=== PATIENT | male | born 1980 | race Asian ===

== ENCOUNTER 2018-12-03 13:53 | Emergency (ER) | payer MEDICARE, MEDICAID ==
[~2018-12-03] VITALS: Ht 180.3 cm; Wt 70.5 kg
[2018-12-03 17:35] LABS: BASOPHILS % (AUTO) 0.7 % (0.0-2.0); EOSINOPHILS % (AUTO) 0.9 % (1.0-6.0); HEMATOCRIT 45.7 % (41-53); HEMOGLOBIN 15.2 g/dL (13.5-17.5); LYMPHOCYTES % (AUTO) 17.9 % (22.0-44.0); MEAN CORPUSCULAR HEMOGLOBIN 30.2 pg (26.0-34.0); MEAN CORPUSCULAR HGB CONC 33.2 G/dL (31.0-37.0); MEAN CORPUSCULAR VOLUME 91 fL (80-100); MONOCYTES # (AUTO) 0.4 K/uL (0.1-1.0); MONOCYTES % (AUTO) 6.8 % (2.0-9.0); NEUTROPHILS # (AUTO) 4.2 K/uL (1.8-7.7); NEUTROPHILS % (AUTO) 73.7 % (40.0-70.0); PLATELET COUNT (AUTO) 269 K/uL (150-450); RED BLOOD CELL COUNT(AUTO) 5.04 MIL/uL (4.50-5.90); RED CELL DISTRIBUTION WIDTH 13.3 % (11.5-14.5)
[2018-12-03 17:43] LABS: ANION GAP 8 mmol/L (8-16); CALCIUM, TOTAL 8.5 mg/dL (8.8-10.5); CARBON DIOXIDE 29 mmol/L (22-29); CHLORIDE 104 mmol/L (98-107); CREATININE 0.95 mg/dL (0.60-1.30); GLOMERULAR FILTR. RATE CALC > 60 mL/min (>60); GLUCOSE,RANDOM 102 mg/dL (70-110); POTASSIUM 3.9 mmol/L (3.5-5.1); SODIUM SERUM 141 mmol/L (136-145); UREA NITROGEN, BLOOD 9 mg/dL (7-18)
[2018-12-03 17:49] LABS: ALANINE AMINOTRANSFERASE 17 U/L (12-78); ALBUMIN 3.9 g/dL (3.4-5.0); ALKALINE PHOSPHATASE 75 U/L (46-116); ASPARTATE AMINOTRANSFERASE 19 U/L (15-37); BILIRUBIN,TOTAL 0.3 mg/dL (0.1-1.0); TOTAL PROTEIN, SERUM 7.3 g/dL (6.4-8.2)
[2018-12-03 18:17] LABS: AMPHET/METH SCREEN,URINE NEGATIVE (NEGATIVE); BARBITURATE SCREEN, URINE NEGATIVE (NEGATIVE); BENZODIAZEPINES SCREEN,URINE NEGATIVE (NEGATIVE); CANNABINOID SCREEN,URINE NEGATIVE (NEGATIVE); COCAINE SCREEN,URINE NEGATIVE (NEGATIVE); METHADONE SCREEN, URINE NEGATIVE (NEGATIVE); OPIATE SCREEN,URINE NEGATIVE (NEGATIVE)
[2018-12-03 18:18] LABS: PHENCYCLIDINE SCREEN,URINE NEGATIVE (NEGATIVE)
[2018-12-03 20:53] VITALS: BP 119/62
== END 2018-12-03 22:00 | disposition home or self-care (01) ==
LOC: EMS 13:55
DX: F20.0 Paranoid schizophrenia (principal); F91.1 Conduct disorder, childhood-onset type
CPT/HCPCS: 36415; 80053; 80307; 85025; 99285; G0480

== ENCOUNTER 2020-04-20 13:40 | Inpatient (IN) | payer OTHER, MEDICAID ==
[~2020-04-20] VITALS: Ht 175.3 cm; Wt 81.0 kg
[2020-04-20 14:43] LABS: BASOPHILS % (AUTO) 0.9 % (0.0-2.0); EOSINOPHILS % (AUTO) 3.8 % (1.0-6.0); HEMATOCRIT 40.7 % (41-53); HEMOGLOBIN 13.7 g/dL (13.5-17.5); LYMPHOCYTES # (AUTO) 0.8 K/uL (1.0-4.8); LYMPHOCYTES % (AUTO) 14.4 % (22.0-44.0); MEAN CORPUSCULAR HEMOGLOBIN 30.2 pg (26.0-34.0); MEAN CORPUSCULAR HGB CONC 33.6 G/dL (31.0-37.0); MEAN CORPUSCULAR VOLUME 90 fL (80-100); MONOCYTES # (AUTO) 0.6 K/uL (0.1-1.0); MONOCYTES % (AUTO) 11.2 % (2.0-9.0); NEUTROPHILS # (AUTO) 3.7 K/uL (1.8-7.7); NEUTROPHILS % (AUTO) 69.7 % (40.0-70.0); PLATELET COUNT (AUTO) 282 K/uL (150-450); RED BLOOD CELL COUNT(AUTO) 4.52 MIL/uL (4.50-5.90); RED CELL DISTRIBUTION WIDTH 13.3 % (11.5-14.5)
[2020-04-20 14:51] LABS: ANION GAP 8 mmol/L (8-16); CALCIUM, TOTAL 8.6 mg/dL (8.8-10.5); CARBON DIOXIDE 29 mmol/L (22-29); CHLORIDE 104 mmol/L (98-107); CREATININE 0.87 mg/dL (0.60-1.30); GLOMERULAR FILTR. RATE CALC > 60 mL/min (>60); GLUCOSE,RANDOM 143 mg/dL (70-110); POTASSIUM 3.4 mmol/L (3.5-5.1); SODIUM SERUM 141 mmol/L (136-145); UREA NITROGEN, BLOOD 6 mg/dL (7-18)
[2020-04-20 14:55] LABS: SALICYLATE 0.3 mg/dL (2.8-20.0)
[2020-04-20 14:57] LABS: ALANINE AMINOTRANSFERASE 31 U/L (12-78); ALBUMIN 3.5 g/dL (3.4-5.0); ALKALINE PHOSPHATASE 85 U/L (46-116); ASPARTATE AMINOTRANSFERASE 21 U/L (15-37); BILIRUBIN,TOTAL 0.3 mg/dL (0.1-1.0); TOTAL PROTEIN, SERUM 6.2 g/dL (6.4-8.2)
[2020-04-20 15:19] LABS: ACETAMINOPHEN < 2 mcg/mL (10-30)
[2020-04-20 17:05] LABS: AMPHET/METH SCREEN,URINE NEGATIVE (NEGATIVE); BARBITURATE SCREEN, URINE NEGATIVE (NEGATIVE); BENZODIAZEPINES SCREEN,URINE NEGATIVE (NEGATIVE); CANNABINOID SCREEN,URINE NEGATIVE (NEGATIVE); COCAINE SCREEN,URINE NEGATIVE (NEGATIVE); METHADONE SCREEN, URINE NEGATIVE (NEGATIVE); OPIATE SCREEN,URINE NEGATIVE (NEGATIVE)
[2020-04-20 17:06] LABS: PHENCYCLIDINE SCREEN,URINE NEGATIVE (NEGATIVE)
[2020-04-20 19:47] LABS: COVID AG,FIA SOURCE NASOPHARYNGEAL
[2020-04-20 21:15] VITALS: BP 122/67
[2020-04-20] MEDS ORDERED: POTASSIUM CHLORIDE 20 MEQ ER TABLET PO ONE (22:00)
[2020-04-21 08:20] VITALS: BP 126/76
[2020-04-21] MEDS ORDERED: MAGNESIUM HYDROXIDE SUSPENSION 30 ML UDCUP PO PRN (09:15)
[2020-04-21] MEDS ORDERED: MAG HYDROX/AL HYDROX/SIMETH ES 30 ML SUSPENSION UDCUP PO PRN (09:15)
[2020-04-21] MEDS ORDERED: ACETAMINOPHEN 325 MG TABLET PO PRN (09:15)
[2020-04-21] MEDS ORDERED: CloNIDine HCL 0.1 MG TABLET PO PRN (09:15)
[2020-04-21] MEDS ORDERED: IBUPROFEN 400 MG TABLET PO PRN (09:15)
[2020-04-21] MEDS ORDERED: ALBUTEROL SULFATE HFA 90 MCG/PUFF 8 GM INHALER IH PRN (09:15)
[2020-04-21] MEDS ORDERED: LOPERAMIDE HCL 2 MG CAPSULE PO PRN (09:15)
[2020-04-21] MEDS ORDERED: NICOTINE 14 MG/24 HOUR PATCH TD PRN (09:15)
[2020-04-21] MEDS ORDERED: DOCUSATE SODIUM 100 MG CAPSULE PO PRN (09:15)
[2020-04-21] MEDS ORDERED: PETROLATUM,WHITE 28 GM JELLY TP PRN (09:15)
[2020-04-21] MEDS ORDERED: ONDANSETRON HCL 4 MG TABLET PO PRN (09:15)
[2020-04-21] MEDS: LORazepam 2 MG TABLET PO PRN (16:14)
[2020-04-21 16:18] VITALS: BP 127/78
[2020-04-21] MEDS: OLANZapine 5 MG TABLET PO SCH (20:22)
[2020-04-22 06:52] LABS: CHOL/HDL RATIO 2.9 (4.2-7.3)
[2020-04-22 08:00] VITALS: BP 119/78
[2020-04-22] MEDS: OLANZapine 5 MG TABLET PO SCH ×2 (08:52→21:22)
[2020-04-22 09:57] VITALS: BP 119/78
[2020-04-22 16:29] VITALS: BP 126/80
[2020-04-23] MEDS: OLANZapine 5 MG TABLET PO SCH ×2 (08:13→20:10)
[2020-04-23 18:17] VITALS: BP 124/71
[2020-04-24 08:00] VITALS: BP 100/64
[2020-04-24] MEDS: OLANZapine 5 MG TABLET PO SCH ×2 (09:06→20:03)
[2020-04-24 16:55] VITALS: BP 150/73
[2020-04-25 08:00] VITALS: BP 127/63
[2020-04-25] MEDS: OLANZapine 5 MG TABLET PO SCH ×2 (08:45→20:14)
[2020-04-25] MEDS: LORazepam 2 MG TABLET PO PRN (08:48)
[2020-04-25] MEDS: HALOPERIDOL 5 MG TABLET PO PRN (08:50)
[2020-04-25 16:43] VITALS: BP 123/90
[2020-04-26] MEDS: OLANZapine 5 MG TABLET PO SCH (08:47)
[2020-04-26 16:50] VITALS: BP 128/96
[2020-04-26] MEDS: GuaiFENesin/D-METHORPHAN [SUGAR-FREE] 200-20MG/10 ML SYRUP UDCUP PO PRN (18:17)
[2020-04-26] MEDS: OLANZapine 10 MG TABLET PO SCH (20:47)
[2020-04-26] MEDS: LORazepam 2 MG TABLET PO PRN (22:44)
[2020-04-27] MEDS: OLANZapine 10 MG TABLET PO SCH ×2 (08:18→20:23)
[2020-04-27] MEDS: HALOPERIDOL 5 MG TABLET PO PRN (08:18)
[2020-04-27] MEDS: LORazepam 2 MG TABLET PO PRN (08:18)
[2020-04-27 08:30] VITALS: BP 128/88
[2020-04-27] MEDS: GuaiFENesin/D-METHORPHAN [SUGAR-FREE] 200-20MG/10 ML SYRUP UDCUP PO PRN (11:01)
[2020-04-27 17:22] VITALS: BP 118/80
[2020-04-28 08:00] VITALS: BP 113/67
[2020-04-28] MEDS: OLANZapine 10 MG TABLET PO SCH ×2 (08:36→20:27)
[2020-04-28] MEDS: HALOPERIDOL 5 MG TABLET PO PRN ×2 (08:36→19:28)
[2020-04-28] MEDS: LORazepam 2 MG TABLET PO PRN ×2 (08:36→19:28)
[2020-04-28] MEDS: GuaiFENesin/D-METHORPHAN [SUGAR-FREE] 200-20MG/10 ML SYRUP UDCUP PO PRN ×2 (08:36→19:06)
[2020-04-28 17:02] VITALS: BP 118/62
[2020-04-29] MEDS: OLANZapine 10 MG TABLET PO SCH (08:06)
[2020-04-29] MEDS: HALOPERIDOL 5 MG TABLET PO PRN ×2 (08:06→22:03)
[2020-04-29] MEDS: LORazepam 2 MG TABLET PO PRN ×2 (08:06→22:03)
[2020-04-29 12:42] VITALS: BP 141/89
[2020-04-29 17:02] VITALS: BP 108/71
[2020-04-29] MEDS: GuaiFENesin/D-METHORPHAN [SUGAR-FREE] 200-20MG/10 ML SYRUP UDCUP PO PRN (18:54)
[2020-04-29] MEDS: OLANZapine 7.5 MG TABLET PO SCH (20:13)
[2020-04-29] MEDS: ZOLPIDEM TARTRATE 10 MG TABLET PO PRN (20:19)
[2020-04-30 09:36] VITALS: BP 109/73
[2020-04-30] MEDS: HALOPERIDOL 5 MG TABLET PO PRN (09:36)
[2020-04-30] MEDS: OLANZapine 7.5 MG TABLET PO SCH ×2 (09:36→20:55)
[2020-04-30] MEDS: LORazepam 2 MG TABLET PO PRN (09:37)
[2020-04-30 12:00] VITALS: BP 133/98
[2020-04-30 17:52] VITALS: BP 116/73
[2020-04-30] MEDS: GuaiFENesin/D-METHORPHAN [SUGAR-FREE] 200-20MG/10 ML SYRUP UDCUP PO PRN (18:46)
[2020-04-30] MEDS: ZOLPIDEM TARTRATE 10 MG TABLET PO PRN (21:04)
[2020-05-01 08:00] VITALS: BP 137/94
[2020-05-01] MEDS: OLANZapine 7.5 MG TABLET PO SCH ×2 (09:27→20:22)
[2020-05-01] MEDS: GuaiFENesin/D-METHORPHAN [SUGAR-FREE] 200-20MG/10 ML SYRUP UDCUP PO PRN (12:58)
[2020-05-01] MEDS: LORazepam 2 MG TABLET PO PRN (14:38)
[2020-05-01] MEDS: HALOPERIDOL 5 MG TABLET PO PRN (14:38)
[2020-05-01 16:28] VITALS: BP 119/75
[2020-05-02 08:00] VITALS: BP 123/76
[2020-05-02] MEDS: OLANZapine 7.5 MG TABLET PO SCH ×2 (08:05→20:27)
[2020-05-02] MEDS: HALOPERIDOL 5 MG TABLET PO PRN ×2 (08:30→20:26)
[2020-05-02] MEDS: LORazepam 2 MG TABLET PO PRN (08:30)
[2020-05-02] MEDS: GuaiFENesin/D-METHORPHAN [SUGAR-FREE] 200-20MG/10 ML SYRUP UDCUP PO PRN ×2 (08:31→17:54)
[2020-05-02 16:09] VITALS: BP 106/74
[2020-05-03 08:00] VITALS: BP 128/85
[2020-05-03] MEDS: LORazepam 2 MG TABLET PO PRN (08:16)
[2020-05-03] MEDS: HALOPERIDOL 5 MG TABLET PO PRN (08:16)
[2020-05-03] MEDS: OLANZapine 7.5 MG TABLET PO SCH (08:16)
[2020-05-03] MEDS: GuaiFENesin/D-METHORPHAN [SUGAR-FREE] 200-20MG/10 ML SYRUP UDCUP PO PRN (08:27)
[2020-05-03] MEDS ORDERED: OLAN7.5T9 PO (11:10)
== END 2020-05-03 14:00 | disposition home or self-care (01) | DRG 885 ==
LOC: EMS 13:41 → 3EC 20:33
DX: F25.0 Schizoaffective disorder, bipolar type (principal); R45.851 Suicidal ideations; E44.0 Moderate protein-calorie malnutrition; K21.9 Gastro-esophageal reflux disease without esophagitis; K59.00 Constipation, unspecified; E87.6 Hypokalemia; F12.90 Cannabis use, unspecified, uncomplicated; Z20.828 Contact with and (suspected) exposure to other viral communicable diseases; Z68.26 Body mass index [BMI] 26.0-26.9, adult
CPT/HCPCS: 84132; 87426; G0480; G0481